=== PATIENT | male | born 1995 ===

== ENCOUNTER 2017-11-07 13:02 | Emergency (ER) | payer BC, OTHER ==
[2017-11-07 14:03] VITALS: BP 141/59
--- NOTE | 2017-11-07 14:16 | UC ---
UC General HPI - HPI Summary HPI Summary: Patient has very few months increasing anxiety. Feels that anxiety gets so bad he will occasionally throw up. He is very anxious at work yesterday and was unable to continue working after throwing up. Denies diarrhea, fevers, chills has been able to eat and urinate his usual amount. Patient believes his anxiety began after a bad breakup with a girlfriend and he is never resolved that. - History of Current Complaint Chief Complaint: UCGeneralIllness Stated Complaint: VOMITING Time Seen by Provider: 11/07/17 13:53 Hx Obtained From: Patient Onset/Duration: Gradual Onset, Lasting Weeks, Still Present Timing: Constant Current Severity: None Pain Intensity: 0 - Allergy/Home Medications Allergies/Adverse Reactions: Allergies Allergy/AdvReac Type Severity Reaction Status Date / Time No Known Allergies Allergy Verified 11/07/17 14:14 Home Medications: Home Medications NK [No Home Medications Reported] 11/07/17 [History Confirmed 11/07/17] PMH/Surg Hx/FS Hx/Imm Hx Previously Healthy: Yes - Surgical History Surgical History: None - Family History Known Family History: Positive: Other - Father has history of kidney disease - Social History 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[employer] Lives: With Family Alcohol Use: Occasionally Substance Use Type: None Smoking Status (MU): Never Smoked Tobacco Review of Systems Constitutional: Negative Skin: Negative Eyes: Negative ENT: Negative Respiratory: Negative Cardiovascular: Negative Gastrointestinal: Vomiting Genitourinary: Negative Motor: Negative Neurovascular: Negative Musculoskeletal: Negative Neurological: Negative Psychological: Negative Is Patient Immunocompromised?: No All Other Systems Reviewed And Are Negative: Yes Physical Exam Triage Information Reviewed: Yes Appearance: Well-Appearing, No Pain Distress, Well-Nourished Vital Signs: Initial Vital Signs Temp 98.8 F 11/07/17 14:01 Pulse 90 11/07/17 14:01 Resp 16 11/07/17 14:01 BP 141/59 11/07/17 14:01 Pulse Ox 100 11/07/17 14:01 Vital Signs Reviewed: Yes Eye Exam: Normal Eyes: Positive: Conjunctiva Clear ENT Exam: Normal ENT: Positive: Normal ENT inspection, Hearing grossly normal, Pharynx normal, TMs normal, Uvula midline. Negative: Nasal congestion, Trismus, Muffled voice, Hoarse voice Dental Exam: Normal Neck exam: Normal Neck: Positive: Supple, Nontender Respiratory Exam: Normal Respiratory: Positive: Chest non-tender, Lungs clear, Normal breath sounds, No respiratory distress, No accessory muscle use Cardiovascular Exam: Normal Cardiovascular: Positive: RRR, No Murmur, Pulses Normal, Brisk Capillary Refill Abdominal Exam: Normal Abdomen Description: Positive: Nontender, No Organomegaly, Soft. Negative: CVA Tenderness (R), CVA Tenderness (L), Hepatomegaly, McBurney's Point Tenderness, Peritoneal Signs, Splenomegaly Bowel Sounds: Positive: Present Musculoskeletal Exam: Normal Musculoskeletal: Positive: Strength Intact, ROM Intact, No Edema Neurological Exam: Normal Neurological: Positive: Alert, Muscle Tone Normal Psychological Exam: Normal - Patient denies HI/SI Skin Exam: Normal Course/Dx - Course Course Of Treatment: Vistaril when necessary, follow with [facility] for counseling follow with PCP for evaluation of anxiety. - Differential Dx - Multi-Symptom Provider Diagnoses: Anxiety, unresolved grief, acute vomiting, elevated blood pressure without diagnosis of hypertension Discharge - Sign-Out/Discharge Documenting (check all that apply): Discharge - Discharge Plan Condition: Stable Disposition: HOME Patient Education Materials: Hypertension (ED), Anxiety (ED) Forms: *Work Release Referrals: [facility] [Outside] - 3 Days Additional Instructions: [facility] [address] [place] [address] call today for an intake appointment - Billing Disposition and Condition Condition: STABLE Disposition: HOME
== END 2017-11-07 14:20 | disposition home or self-care (01) ==
LOC: UCEAST 13:02
DX: F41.9 Anxiety disorder, unspecified (principal); F43.21 Adjustment disorder with depressed mood; R11.10 Vomiting, unspecified; R03.0 Elevated blood-pressure reading, without diagnosis of hypertension
CPT/HCPCS: 99201; G0463